=== PATIENT | male | born 1940 | race Caucasian/White ===

== ENCOUNTER 2022-02-08 08:33 | Outpatient (CLI) | payer MEDICARE, OTHER, SELFPAY ==
[2022-02-08 12:38] LABS: Chloride* 96 mmol/L (96-114); Potassium* 3.8 mmol/L (3.6-5.1); Sodium* 140 mmol/L (135-149)
[2022-02-08 12:41] LABS: Blood Urea Nitrogen* 22 mg/dL (7-30); Carbon Dioxide* 32 mmol/L (20-32); Estimated Glomerular Filt Rate 76 ml/min
[2022-02-08 12:42] LABS: Calcium* 10.7 mg/dL (8.4-10.6); Glucose* 139 mg/dL (60-115)
== END 2022-02-08 08:34 | disposition home or self-care (01) ==
LOC: FRMREF 08:34
PROVIDERS: PCP Physician Assistant Medical; Visit Provider Physician Assistant Medical
DX: Z01.818 Encounter for other preprocedural examination (principal)
CPT/HCPCS: 80048

== ENCOUNTER 2022-03-07 10:01 | Day surgery (SDC) | payer MEDICARE, OTHER, SELFPAY ==
[2022-03-07] VITALS (19 sets, daily range): BP systolic 109–154; BP diastolic 65–95; PULSE 68–91; RESP 16; TEMP 35.7–37.4; O2SAT 92–95; BMI 29.8
[2022-03-07] MEDS: LACTATED RINGERS 1000 ML 1,000 ML 100 ML IV (10:00)
[2022-03-07] MEDS: OXYCODONE (CR) 10 MG TAB.ER.12H PO (10:29)
[2022-03-07] MEDS: CELECOXIB 200 MG CAPSULE PO ×2 (10:29→21:27)
[2022-03-07] MEDS: SODIUM CHLORIDE 0.9 % (FLUSH) 10 ML SYRINGE IVF (10:29)
[2022-03-07] MEDS: ACETAMINOPHEN 500 MG TABLET 1000 MG PO ×2 (10:29→17:37)
[2022-03-07] MEDS: MIDAZOLAM HCL 1 MG/ML inj IVP (12:08)
[2022-03-07] MEDS: fentaNYL 100 MCG/2 ML inj IVP (12:08)
--- NOTE | 2022-03-07 12:09 | SUR.PREOP ---
TIME?OUT:?1205 PT/RN/MDA?VERIFICATION?OF?SURGICAL?SITE left knee,?PROCEDURE nerve block,?AND?CONSENT OBTAINED?PRIOR?TO?INVASIVE?PROCEDURE.
--- NOTE | 2022-03-07 13:29 | P.NB_ITS ---
Nerve Block Nerve Block Time Seen by Provider: 12:15 Date Seen: 03/07/22 Type of block requested by surgeon for post-operative analgesia: adductor canal Side: left Time out performed: Yes Verification of patient name: Yes Verification of date of : Yes Site marking: site marked Name of person performing procedure: Tiburcio Jimenez Assistants, if any: Sariah Trotter Continuous monitoring Was continuous monitoring of O2 sat, B/P, campus monitor, recorded every 15 minutes?: Yes Procedure Checklist: sterile prep, needles and gloves Ultrasound guided. Images saved: Yes Medications given in 5ml increments after negative aspiration: Ropivicaine %: 0.5 mL: 20 Needle gauge: 20 Decadron (mg): 10 Precedex (mcg): 25 Patient tolerated procedure well: Yes Additional comments: injected in 5ml increments after negative aspiration Block Charges Block Charge (with Pro Fee): Femoral Nerve Use of Ultrasound Machine for Block: Yes- US Guidance/pain block
--- NOTE | 2022-03-07 13:30 | P.NB_ITS ---
Nerve Block Nerve Block Time Seen by Provider: 12:15 Date Seen: 03/07/22 Type of block requested by surgeon for post-operative analgesia: geniculars Side: left Time out performed: Yes Verification of patient name: Yes Verification of date of : Yes Site marking: site marked Name of person performing procedure: Tiburcio Jimenez Continuous monitoring Was continuous monitoring of O2 sat, B/P, decorating consultant, recorded every 15 minutes?: Yes Procedure Checklist: sterile prep, needles and gloves Ultrasound guided. Images saved: No Medications given in 5ml increments after negative aspiration: Ropivicaine %: 0.5 mL: 12 Needle gauge: 25 Patient tolerated procedure well: Yes Additional comments: Injected in 4 ml increments after negative aspiration Block Charges Block Charge (with Pro Fee): Genicular Nerve Block Use of Ultrasound Machine for Block: No
--- NOTE | 2022-03-07 13:30 | W.ANESCHARGE ---
Anesthesia Charges Start Date/Time Anesthesia Start Date: 03/07/22 Anesthesia Start Time: 12:13 Stop Date/Time Anesthesia Stop Date: 03/07/22 Anesthesia Stop Time: 14:23 Summary Emergency: No Extremes of Age: Over 71-CPT [id number]
--- NOTE | 2022-03-07 13:40 | CRLHL7_ITS ---
For Patients: As a result of the Cures Act, medical imaging exams and procedure reports are released immediately into your electronic medical record. You may view this report before your referring provider. If you have questions, please contact your health care provider. INDICATION: Post left knee, postoperative total knee arthroplasty TECHNIQUE: Knee radiograph 2 views left COMPARISON: None FINDINGS: Bone: No acute fractures or aggressive bone lesions are identified. Joint: The patient is status post a total knee arthroplasty with patellar resurfacing. No significant knee effusion is seen. Soft tissue: Anterior skin, subcutaneous gas and joint gas are present from recent surgery. No radiopaque foreign bodies are seen. IMPRESSION: 1. There is an unremarkable postoperative appearance of the knee arthroplasty. Prelim Report By Dr. Pino Leon @ 03/07/2022 2:48:08 PM Dictated by: Pino Leon MD @ 03/07/2022 14:48:57 (Electronically Signed)
--- NOTE | 2022-03-07 13:43 | P.ORPRC_ITS ---
Procedure Note Date of procedure: 03/07/22 Procedure: SURGEON: Chuy De Santiago MD GARMENT MANUFACTURING SUPERVISOR: Mary Chavez PA-C PREOPERATIVE DIAGNOSIS: Left knee osteoarthritis POSTOPERATIVE DIAGNOSIS: Left knee osteoarthritis NAME OF OPERATION: Left total knee arthroplasty ANESTHESIA: Spinal ESTIMATED BLOOD LOSS: 0 mL COMPLICATIONS: None SPECIMENS: None DRAINS: None PREOPERATIVE ANTIBIOTICS: Ancef 2 grams IMPLANTS: 1. J&J Attune # 8 posterior stabilized femur 2. # 8 fixed-bearing tibia 3. # 8 posterior stabilized, 5 mm fixed-bearing polyethylene 4. 41 patella INDICATIONS: The patient is a 81-year-old male with a longstanding history of severe, unrelenting left knee pain secondary to end-stage (grade IV) left knee osteoarthritis. Despite appropriate nonoperative management, including activity modification, anti-inflammatories, [id number] pain medication, bracing, physical therapy, and injections they continue to have pain and disability. Operative intervention was offered. The risks, benefits and expected outcomes were discussed in detail. These included but were not limited to: Infection, bleeding, injury to blood vessel or nerve, venous thromboembolism. All questions were answered to their satisfaction. Use of an trust administrative assistant was necessary throughout the case for patient positioning and safety, soft tissue retraction, and closure. PROCEDURE: Spinal anesthesia was administered. The patient was placed supine on the operating table. The trust administrative assistant made sure the patient was positioned appropriately. The lower extremity was prepped and draped in the usual sterile fashion. The limb was exsanguinated with the Quang bandage. The pneumatic tourniquet was inflated to 300 mmHg. A standard anterior incision was made with the knee in flexion. Subcutaneous dissection was sharply taken through fascial layer #1. Full-thickness medial and lateral flaps were elevated. The trust administrative assistant retracted the soft tissues and protected them throughout the case. A standard medial parapatellar approach was made. The patella was everted. The infrapatellar fat pad was preserved. The menisci and cruciate ligaments were sharply d?brided. Marginal osteophytes were d?brided with the rongeur. The drill was used to penetrate the femoral canal. The canal was aspirated and irrigated with pulse lavage. The intramedullary femoral guide was placed for a 5-degree valgus cut, removing 10 mm off the distal femur. The saw was used to make the cut. Whitesides line and the trans epicondylar axis were marked. The femoral sizing guide was pinned onto the distal femur. Three degrees of external rotation nicely parallels the transepicondylar axis. Pins were placed for posterior referencing. The four-in-one cutting guide was pinned onto the distal femur. The anterior, posterior, and chamfer cuts were made. The trust administrative assistant protected the collateral ligaments. The box cutting guide was pinned. The box cuts were made. The boxed trial was placed and was an excellent fit. Drill holes for the lugs were made. Attention was then turned to the proximal tibia. The extramedullary tibial guide was placed for a neutral varus/valgus cut with 5 degrees of posterior slope, removing 1 mm based off the medial tibial surface. The trust administrative assistant protected the collateral ligaments and the neurovascular bundle. The saw was used to make the cut. Trial components were placed. The knee was nicely balanced in both flexion and extension. The trial components were removed. The tray was placed in appropriate rotation, parallel to our tibial cutting pins. It was pinned by the trust administrative assistant and the drill and the punch were used. The tray was removed. The punch was used again. We placed a bone plug in the femoral canal. Attention was then turned to the patella. [place] patellar thickness was 25 mm. The lobster claw resection guide was used with the 9.5 mm pretty. The saw was used to make the cut. Drill holes were made by the trust administrative assistant. The trial was placed and was an excellent fit. Cancellous surfaces were irrigated with pulse lavage and thoroughly dried by the trust administrative assistant. We cemented the tibial component, then the femoral component. We impacted the 5 mm polyethylene onto the tibial tray. The knee was brought into full extension. We then cemented the patellar component. Excessive cement was removed. The cement was allowed to harden. The knee was taken through a range of motion and was found to be nicely balanced in both flexion and extension. The patella tracks centrally. The trust administrative assistant did a three minute dilute Betadine solution soak. The trust administrative assistant irrigated the wound with 3 liters of normal saline via pulse lavage. The trust administrative assistant reapproximated the extensor mechanism with #1 Vicryl in an interrupted vgnmif-qx-poyka fashion. The trust administrative assistant then ran the extensor mechanism with a #1 PDO Stratafix. The trust administrative assistant closed the subcutaneous tissues with a 3-0 Stratafix and the skin with a running 3-0 Stratafix in a subcuticular fashion. Glue was used to seal the skin. The trust administrative assistant placed a dry dressing, DANTE stocking, and Polar Care. Sponge and needle counts were correct x2. The patient tolerated the procedure well. There were no apparent complications. They were carefully transferred to the hospital bed and taken to the postanesthesia care unit in satisfactory condition. PLAN: The patient will be mobilized with physical therapy. Aspirin will be used for DVT prophylaxis. They will be discharged to home once medically appropriate.
[2022-03-07] MEDS: LACTATED RINGERS 1000 ML 1,000 ML 75 ML IV (17:37)
[2022-03-07] MEDS: OXYCODONE 5 MG TABLET PO (17:37)
[2022-03-07] MEDS: CEFAZOLIN 2 GM in 0.9 % SODIUM CHLORIDE Mini-bag 100 ML IVPB (18:22)
[2022-03-07] MEDS: ATORVASTATIN 10 MG TABLET PO (21:27)
[2022-03-07] MEDS: SENNOSIDES 1 TAB TABLET 2 TAB PO (21:27)
[2022-03-07] MEDS: ASPIRIN 81 MG TABLET EC PO (21:27)
--- NOTE | 2022-03-07 21:47 | PM.IMCN1 ---
Date of Consult Patient: [facility] Patient Consult date: 03/07/22 Requesting Physician: Orthopedics Primary Care Provider: Anthony Rodarte PA-C Consult Narrative Reason for consult: Assist with postoperative management of medical conditions Narrative: Carl Domingo is a 81 year old man with advanced, end-stage right gonarthrosis. No longer amenable to non surgical modalities. Patient presents for elective right total knee arthroplasty today, which is undertaken successfully, without any apparent complications. Doing well. Review of Systems Status of ROS: Reports: 10 or more systems reviewed and unremarkable except as noted in History and below Narrative: Postoperative knee pain adequately managed at this juncture. Denies chest heaviness, pressure, tightness, or pain. Denies dyspnea at rest, dyspnea with exertion, paroxysmal nocturnal dyspnea, orthopnea, or cough. Denies syncope or near-syncope. Denies palpitations or fluttering. Denies dependent edema. Denies nausea or vomiting. Denies diarrhea constipation. Denies dysuria, urinary urgency, frequency, hematuria. No recent trauma, injury, blood loss, or acute illness. Denies fevers, rigors, diaphoresis. Denies heat or cold intolerance. No focal motor neurologic deficits. [facility] Medical History (Updated 03/07/22 @ 21:53 by Jayy Amor MD) Acquired hypothyroidism Actinic keratosis Diabetes mellitus Fatigue Gastroesophageal reflux Gout Hyperlipidemia Hypertension Hypothyroidism Osteoarthritis of right knee Sleep apnea Traumatic brain injury (~2010) Surgical History (Updated 03/07/22 @ 21:53 by Jayy Amor MD) History of repair of hiatal hernia (~1979) History of shoulder surgery (~1999) History of transurethral resection of prostate (~1989) Status post evacuation of subdural hematoma (~2010) Family History Father Myocardial infarction Social History Narrative: former smoker no illicit drug use rarely consumes alcohol Smoking Status: Former smoker What tobacco products do you use: cigarettes Smoking quit date/years: >15 years ago Do you use any of these nicotine containing products: None How often do you have a drink containing alcohol: 2-4 times a month Alcohol type: beer How many standard drinks containing alcohol do you have on a typical day: 1 or 2 How often do you have six or more drinks on one occasion: Never AUDIT-C Alcohol total score: 2 Non-prescribed substance use: denies use Caffeine: Yes (coffee, 6-8 cups/day) service: No Meds Home Medications and Allergies Home Medications Medication Instructions Recorded Confirmed Type aspirin 81 mg tablet,delayed 81 mg PO DAILY 11/14/21 03/07/22 History release (Adult Low Dose Aspirin) trazodone 50 mg tablet 25 - 50 mg PO HS 11/14/21 03/07/22 History atorvastatin 10 mg tablet 10 mg PO HS 03/07/22 03/07/22 History ketoconazole 2 % topical cream 1 applic topical DAILY PRN 03/07/22 03/07/22 History levothyroxine 112 mcg tablet 112 mcg PO DAILY 03/07/22 03/07/22 History lisinopril 40 mg tablet 40 mg PO DAILY 03/07/22 03/07/22 History metformin 500 mg tablet 500 mg PO DAILY 03/07/22 03/07/22 History nifedipine 60 mg tablet,extended 60 mg PO DAILY 03/07/22 03/07/22 History release Allergies Allergy/AdvReac Type Severity Reaction Status Date / Time No Known Allergies Allergy Verified 03/07/22 10:13 Exam Narrative: Exam Narrative: Appears comfortable, no acute distress. Friendly, articulate, cooperative. Mood and affect are congruent. Decreased hearing, chronic. Vision is grossly normal. Midline nasal septum. Dentition in fair repair. Neck is supple. Midline trachea. Normal thyroid. No JVD, hepatojugular reflux, or carotid bruits. No lymphadenopathy. Lungs are clear to auscultation without wheezing, rhonchi, or rales. Chest wall excursions are full. No CVA tenderness. Heart tones with regular rhythm, normal S1-S2, without murmur, gallop, or rub. Abdomen with active bowel sounds, soft, nontender. Extremities without edema. Moves all 4 extremities. Able to transfer from chair to bed and bed to chair. Skin is intact. Const: Vital Signs, click to edit/add: Vital Signs - 24 hr 03/07/22 10:30 03/07/22 14:19 03/07/22 14:25 Temperature 99.3 F 97.3 F L Pulse Rate 91 70 72 Pulse Rate [Left P ulse Oximeter] Respiratory Rate 16 16 16 Blood Pressure 122/85 109/65 128/81 Blood Pressure [Ri ght Arm] Pulse Oximetry 94 93 92 Oxygen Delivery Me thod Room Air Room Air Room Air 03/07/22 14:30 03/07/22 14:35 03/07/22 14:40 Temperature Pulse Rate 69 68 69 Pulse Rate [Left P ulse Oximeter] Respiratory Rate 16 16 16 Blood Pressure 126/80 129/71 127/78 Blood Pressure [Ri ght Arm] Pulse Oximetry 92 93 93 Oxygen Delivery Me thod Room Air Room Air Room Air 03/07/22 14:44 03/07/22 15:00 03/07/22 15:15 Temperature 96.3 F L 96.5 F L Pulse Rate 70 74 Pulse Rate [Left P ulse Oximeter] 72 Respiratory Rate 16 16 16 Blood Pressure 123/78 Blood Pressure [Ri ght Arm] 149/85 H 145/85 H Pulse Oximetry 93 93 Oxygen Delivery Me thod Room Air Room Air Room Air 03/07/22 15:30 03/07/22 15:45 03/07/22 16:00 Temperature 97.2 F L Pulse Rate Pulse Rate [Left P ulse Oximeter] 72 77 78 Respiratory Rate 16 16 16 Blood Pressure Blood Pressure [Ri ght Arm] 154/92 H 149/88 H 128/95 H Pulse Oximetry 93 94 94 Oxygen Delivery Me thod Room Air Room Air Room Air 03/07/22 16:30 03/07/22 17:00 03/07/22 18:00 Temperature Pulse Rate Pulse Rate [Left P ulse Oximeter] 79 77 88 Respiratory Rate 16 16 16 Blood Pressure Blood Pressure [Ri ght Arm] 139/79 148/90 H 138/82 Pulse Oximetry 95 94 94 Oxygen Delivery Me thod Room Air Room Air Room Air 03/07/22 19:00 Temperature 98.0 F Pulse Rate Pulse Rate [Left P ulse Oximeter] 88 Respiratory Rate 16 Blood Pressure Blood Pressure [Ri ght Arm] 137/89 Pulse Oximetry 93 Oxygen Delivery Me thod Room Air Assessment and Plan Assessment and plan (1) Osteoarthritis of right knee: Status: Acute (2) Status post right knee replacement: Status: Acute (3) Obstructive sleep apnea: Problem comment: 10 cm H2O Status: Acute (4) Hypertension: Status: Acute (5) Gastroesophageal reflux: Status: Acute (6) Acquired hypothyroidism: Status: Acute (7) Diabetes mellitus: Status: Acute (8) Pure hypercholesterolemia: Status: Acute Plan 1. Reviewed impression with patient. Answers questions. 2. Agree with perioperative antibiotic prophylaxis. 3. Agree with postoperative venous thromboembolism prophylaxis efforts. 4. Continue with other supportive efforts. 5. Will follow with Orthopedic surgery while patient is here in the hospital.
--- NOTE | 2022-03-07 23:29 | PC.NURSE ---
End of Shift: Patient pleasant and cooperative. Afebrile. Dressing to left knee C/D/I. CMS intact. Rating pain 2-4/10 and PRN Oxycodone given x1. Up to chair and bathroom with 1 assist, walker and gait belt. Tolerating regular diet with no nausea.
[2022-03-08] MEDS: ACETAMINOPHEN 500 MG TABLET 1000 MG PO ×2 (00:12→05:53)
[2022-03-08] MEDS: CEFAZOLIN 2 GM in 0.9 % SODIUM CHLORIDE Mini-bag 100 ML IVPB (02:41)
[2022-03-08] MEDS: LEVOTHYROXINE 112 MCG TABLET PO (05:53)
[2022-03-08 07:00] VITALS: BP 155/77; PULSE 82; RESP 16; TEMP 36.9; O2SAT 94
--- NOTE | 2022-03-08 07:40 | PC.NURSE ---
23-07: pleasant and cooperative. SBA with gb and walker, tolerates activity well. No c/o pain. VSS. Dressing to knee CDI, cryocuff on.
[2022-03-08 07:52] LABS: Basophils Absolute Auto 0.02 K/uL (0.00-0.30); Basophils Percent Auto 0.2 % (0.0-3.0); Hematocrit 38.8 % (37.0-53.0); Hemoglobin* 13.6 gm/dL (13.5-17.5); Immature Granulocytes Abs Auto 0.01 K/uL (0.00-0.30); Immature Granulocytes Pct Auto 0.1 %; Lymphocytes Percent Auto 10.2 % (20-44); Mean Corpuscular HGB Conc 35 gm/dL (32-36); Mean Corpuscular Hemoglobin 32 pg (26-34); Mean Corpuscular Volume 92 fL (80-100); Neutrophils Percent Auto 82.5 % (42.0-72.0); Platelet Count* 211 K/uL (140-440); RDW Coefficient of Variation % 12.8 % (11.5-15.5); White Blood Count* 10.93 K/uL (4.50-11.00)
[2022-03-08 07:58] LABS: Slide Review Reflex No
[2022-03-08 08:13] LABS: INR 1.13 (0.91-1.10); Prothrombin Time 15.2 Seconds
[2022-03-08 08:25] LABS: Sodium* 136 mmol/L (135-149)
[2022-03-08 08:26] LABS: Potassium* 3.6 mmol/L (3.6-5.1)
[2022-03-08 08:28] LABS: Creatinine* 0.9 mg/dL (0.5-1.5); Est. Creatinine Clearance* 62.75; Estimated Glomerular Filt Rate 86 ml/min
[2022-03-08 08:29] LABS: Blood Urea Nitrogen* 23 mg/dL (7-30)
--- NOTE | 2022-03-08 08:39 | PM.ORPN ---
Subjective Subjective Time Seen by Provider: 07:15 Date Seen: 03/08/22 Principal diagnosis: Status post left total knee replacement Interval history: Carl is doing well this morning. He will discharge to home today. Ortho Exam Narrative Exam Narrative: Alert and oriented x3. Patient is in no acute distress. Converses without labored breathing. Hearing is grossly intact. Ambulates with a walker. Examination of the left knee shows very minimal soft tissue edema about the left knee. No effusion is palpable. Bilateral calves are soft and nontender. CMS is intact left lower extremity. He easily moves from lying position to a seated position swinging his legs over the edge of the bed easily. He wants to put his regular clothes on. Const Vital Signs, click to edit/add: Vital Signs - 24 hr 03/07/22 10:30 03/07/22 14:19 03/07/22 14:25 Temperature 99.3 F 97.3 F L Pulse Rate 91 70 72 Pulse Rate [Left Pulse Oximeter] Respiratory Rate 16 16 16 Blood Pressure 122/85 109/65 128/81 Blood Pressure [Right Arm] Pulse Oximetry 94 93 92 Oxygen Delivery Method Room Air Room Air Room Air 03/07/22 14:30 03/07/22 14:35 03/07/22 14:40 Temperature Pulse Rate 69 68 69 Pulse Rate [Left Pulse Oximeter] Respiratory Rate 16 16 16 Blood Pressure 126/80 129/71 127/78 Blood Pressure [Right Arm] Pulse Oximetry 92 93 93 Oxygen Delivery Method Room Air Room Air Room Air 03/07/22 14:44 03/07/22 15:00 03/07/22 15:15 Temperature 96.3 F L 96.5 F L Pulse Rate 70 74 Pulse Rate [Left Pulse Oximeter] 72 Respiratory Rate 16 16 16 Blood Pressure 123/78 Blood Pressure [Right Arm] 149/85 H 145/85 H Pulse Oximetry 93 93 Oxygen Delivery Method Room Air Room Air Room Air 03/07/22 15:30 03/07/22 15:45 03/07/22 16:00 Temperature 97.2 F L Pulse Rate Pulse Rate [Left Pulse Oximeter] 72 77 78 Respiratory Rate 16 16 16 Blood Pressure Blood Pressure [Right Arm] 154/92 H 149/88 H 128/95 H Pulse Oximetry 93 94 94 Oxygen Delivery Method Room Air Room Air Room Air 03/07/22 16:30 03/07/22 17:00 03/07/22 18:00 Temperature Pulse Rate Pulse Rate [Left Pulse Oximeter] 79 77 88 Respiratory Rate 16 16 16 Blood Pressure Blood Pressure [Right Arm] 139/79 148/90 H 138/82 Pulse Oximetry 95 94 94 Oxygen Delivery Method Room Air Room Air Room Air 03/07/22 19:00 03/07/22 20:00 03/07/22 21:00 Temperature 98.0 F 97.7 F Pulse Rate Pulse Rate [Left Pulse Oximeter] 88 88 85 Respiratory Rate 16 16 16 Blood Pressure Blood Pressure [Right Arm] 137/89 142/65 H 132/80 Pulse Oximetry 93 93 94 Oxygen Delivery Method Room Air Room Air Room Air 03/07/22 23:00 03/07/22 23:00 03/08/22 07:00 Temperature 97.7 F Pulse Rate Pulse Rate [Left Pulse Oximeter] 75 75 82 Respiratory Rate 16 16 16 Blood Pressure Blood Pressure [Right Arm] 138/84 Pulse Oximetry 94 Oxygen Delivery Method Room Air 03/08/22 07:00 Temperature 98.4 F Pulse Rate Pulse Rate [Left Pulse Oximeter] 82 Respiratory Rate 16 Blood Pressure Blood Pressure [Right Arm] 155/77 H Pulse Oximetry 94 Oxygen Delivery Method Room Air Assessment and Plan Assessment and plan (1) Osteoarthritis of right knee: Status: Acute (2) Status post right knee replacement: Problem details: 03/07/2022 Status: Acute Assessment and Plan: Plan for discharge is today to home if they meet discharge criteria. DVT prophylaxis includes aspirin 81 mg twice daily x1 month, Pb stockings x1 month may remove for 1 hr per day, frequent ambulation Remove dressing in 1 week. Observe wound and phone Orthopedics with any questions or concerns Return to clinic in 1 week for a wound check Return to clinic in [address] De Santiago Minimize narcotic use. Wean off and discontinue soon as possible. Activities as tolerated. No strenuous activity. Outpatient physical therapy as scheduled. Ice and elevate the operative extremity. No restriction on ice. (3) Obstructive sleep apnea: Problem details: 10 cm H2O Status: Acute (4) Hypertension: Status: Acute (5) Gastroesophageal reflux: Status: Acute (6) Acquired hypothyroidism: Status: Acute (7) Diabetes mellitus: Status: Acute (8) Pure hypercholesterolemia: Status: Acute
[2022-03-08] MEDS: SENNOSIDES 1 TAB TABLET 2 TAB PO (08:41)
[2022-03-08] MEDS: CELECOXIB 200 MG CAPSULE PO (08:41)
[2022-03-08] MEDS: lisinopriL 20 MG TABLET 40 MG PO (08:42)
[2022-03-08] MEDS: OXYCODONE 5 MG TABLET PO (08:42)
[2022-03-08] MEDS: METFORMIN 500 MG TABLET PO (08:42)
[2022-03-08] MEDS: NIFEdipine 30 MG TAB.ER.24 60 MG PO (08:42)
[2022-03-08] MEDS: ASPIRIN 81 MG TABLET EC PO (08:42)
--- NOTE | 2022-03-08 10:19 | PC.SOCIAL ---
Social Work Note: Social work met with pt. and today to discuss discharge. Pt. said that is available to help him as needed, and that he has a support system to call if he needs help at home. Pt. stated that home is fully handicap-accessible and has no concerns about home safety. Pt. expressed no further concerns at this time. Pt. and were informed that they can reach out to social work with any future needs.
--- NOTE | 2022-03-08 12:09 | PC.NURSE ---
Discharge: Shift note/ Pt. alert and oriented x4. Dressing to Left knee C/D/I. No pain reported. Tolerating a regular diet. Pt. ambulated w/PT and OT and tolerated activity well. No N/V/SOB reported. Pt. VSS. IV removed from left forearm intact. Pt. Belongings list and Discharge instruction sheet signed. Pt. and Spouse verbalized understanding of discharge instructions, follow up and therapy appointment. Pt. was discharged at 1045, accompanied by via wheelchair to home.
== END 2022-03-08 10:45 | disposition home or self-care (01) ==
LOC: OR 10:03 → MEDSURG 10:05
PROVIDERS: PCP Physician Assistant Medical; Visit Provider Orthopaedic Surgery
PROC: (CPT 27447; principal; 2022-03-07 12:00)
DX: M17.12 Unilateral primary osteoarthritis, left knee (principal); M25.562 Pain in left knee; G47.33 Obstructive sleep apnea (adult) (pediatric); E11.9 Type 2 diabetes mellitus without complications; I10 Essential (primary) hypertension; K21.9 Gastro-esophageal reflux disease without esophagitis; E03.9 Hypothyroidism, unspecified; E78.00 Pure hypercholesterolemia, unspecified
CPT/HCPCS: 27447; 01402; 36415; 64447; 64454; 73560; 76942; 82565; 82962; 84132; 84295; 84520; 85025; 85610; 97110; 97116; 97161; 97165; 99100; A9270; C1776; J0690; J1100; J2250; J2704; J2795; J3010; J7120

== ENCOUNTER 2022-03-22 15:41 | Outpatient (CLI) | payer MEDICARE, OTHER, SELFPAY ==
--- NOTE | 2022-03-22 16:00 | CRLHL7_ITS ---
For Patients: As a result of the Century Cures Act, medical imaging exams and procedure reports are released immediately into your electronic medical record. You may view this report before your referring provider. If you have questions, please contact your health care provider. INDICATION: LEFT CALF PAIN, LT TKA SP 03/07/22 TECHNIQUE: Ultrasound venous duplex left lower extremity. COMPARISON: None. FINDINGS: The left common femoral, superficial femoral, deep femoral, popliteal, posterior tibial, and greater saphenous veins are fully compressible normal waveforms. The contralateral right common femoral vein is also compressible with normal waveform. No masses evident. IMPRESSION: Normal ultrasound of the left lower extremity veins. Dictated by: Ranjeet Roy MD @ 03/22/2022 16:46:54 (Electronically Signed)
== END 2022-03-22 15:42 | disposition home or self-care (01) ==
LOC: US 15:44
PROVIDERS: PCP Physician Assistant Medical; Visit Provider Physician Assistant Surgical
DX: M79.662 Pain in left lower leg (principal)
CPT/HCPCS: 93971

== ENCOUNTER 2022-04-19 11:15 | Outpatient (RCR) | payer MEDICARE, OTHER, SELFPAY ==
--- NOTE | 2022-03-01 15:56 | PT.OPE ---
PT [place] [facility] Eval PT [facility] Outpatient Eval Start: 03/01/22 12:43 Freq: Status: Active Protocol: Document 03/01/22 12:44 CJT (Rec: 03/01/22 15:54 CJT [id number]) E-signed By Wilfred Linda PT Physical Therapy Outpatient Evaluation Insurance Information Recert Due Date 06/09/22 Insurance Name Medicare B Medical Diagnosis Pre-/Post-Op L TKA - DOS: 12/19 Treating Diagnosis Z96.652 - L knee replacement Z47.1 - joint replacement aftercare Referring Chuy Foley MD Subjective Subjective Pt presents for pre-op visit for L TKA top be performed by Dr. De Santiago on 03/07/2022. Pt presents with his , Sally (Zac). Pt lives in a 1-level home with his and his granddaughter and her family live next door. Pt has a walk- in shower with a chair available and 1 grab bar. Toilet seat is slightly higher than average. Pts Zac has had a knee replacement in the past by Dr. Alfonso and Carl will be using her walker and SPC following surgery for his ADs. Pt has chicken coop on his property and is wondering how long he must wait after surgery before he can go collect eggs. Pts pain in his knee is worse with transfers and long periods of sitting. 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 Pts home is more than adequate for a safe return following home and he informs me that when he had his house built, his builders abided by ADA standards so that his entire home is W/C accessible, although he does not use a W/C . Pts will be home to assist when needed. I discussed the risk of being around farm animals after surgery including increased risk for infection and pt understands this. He does have a great grandson that lives next door that will be able to help collect eggs when needed . The nature of the pts condition as well as expectations following surgery were explained and all questions were answered to the pts satisfaction. Skilled PT services are medically necessary to address deficits and return patient to highest level of function. Recommend physical therapy sessions 1-2/ week for 12 weeks. Pt agrees with this plan. Printout of HEP was given for I completion and pt gives verbal understanding of each exercise . Primary Functional Limitations Transfers, walking Plan of Care Rehabilitation Potential Excellent Physical Therapy Goals STG - To be completed in 2-3 weeks: 1. Pt will report consistent use of ice as well as elevation of surgical limb while resting to reduce inflammation and swelling. 2. Pt will demonstrate 90 degrees of knee flexion on surgical limb to reduce risk of contracture development and progress through rehabilitation as expected. 3. Pt to show appropriate use of all AD's with minimal gait deviations and no LOB with all ambulation to reduce risk of falls and restore normal gait mechanics. LTG - To be completed in 8-12 weeks: 1. Pt to be I with HEP so that they may I manage progression of symptoms. 2. Pt will demonstrate 120 degrees knee flexion on surgical limb so that they may descend steps without restrictions in ROM. 3. Pt will perform 10+ squats with good control over medial/ lateral deviation of knees to show improved functional strength to assist with transfers. 4. Pt will demonstrate 5/5 MMT knee flexion/extension of surgical limb to provide greater support to knee joint and allow for ease of ambulation. 5. Pt will ambulate 500 ft over uneven ground without AD or LOB so that he may walk out to chicken coop to collect eggs at home with confidence and reduced risk of falls. Treatment Plan/Direct Interventions Electrical Stimulation,Gait Training,Ice/Cold/ Vasopneumatic,Joint Mobilization,Manual Therapy, Neuromuscular Re-ed,Self-Care/ Home Management,Therapeutic Exercises Frequency/Duration 1-2/week for 12 weeks Patient Will Be Discharged From Therapy Completion of LTG(s),Skills Plateau,Independent w/HEP, Independently Progressing Evaluation Billing Untimed Code Treatment Minutes 50 PT Eval No Charge No Complexity Low Certification Information Initial Certification Date 03/01/22 Ending Certification Date 06/09/22 Provider Signature Shows Agreement With POC & Medical Necessity Physician Signature & Date Requested Please Sign/Date Here Physician Comment/Change : Physician NPI Number #
== END 2022-11-16 23:59 | disposition home or self-care (01) ==
PROVIDERS: PCP Physician Assistant Medical; Visit Provider Orthopaedic Surgery
DX: M17.12 Unilateral primary osteoarthritis, left knee (principal); Z96.652 Presence of left artificial knee joint; Z47.1 Aftercare following joint replacement surgery; Z51.89 Encounter for other specified aftercare
CPT/HCPCS: 97016; 97110; 97116; 97140; 97161; 97164

== ENCOUNTER 2022-05-02 09:31 | Outpatient (CLI) | payer MEDICARE, OTHER, SELFPAY ==
[2022-05-02 13:19] LABS: Chloride* 99 mmol/L (96-114); Potassium* 3.7 mmol/L (3.6-5.1); Sodium* 141 mmol/L (135-149)
[2022-05-02 13:21] LABS: Bilirubin Total* 0.8 mg/dL (0.1-1.5); Carbon Dioxide* 31 mmol/L (20-32); Creatinine* 1.1 mg/dL (0.5-1.5); Estimated Glomerular Filt Rate 68 ml/min
[2022-05-02 13:22] LABS: Alanine Aminotransferase* 25 U/L (4-50); Alkaline Phosphatase* 89 U/L (40-150); Aspartate Amino Transferase* 28 U/L (12-35); Blood Urea Nitrogen* 29 mg/dL (7-30); Glucose* 161 mg/dL (60-115); Total Protein* 7.8 g/dL (6.0-8.3); Triglycerides* 276 mg/dL (40-149)
[2022-05-02 13:23] LABS: Calcium* 10.5 mg/dL (8.4-10.6); HDL Cholesterol* 33 mg/dL (>=40)
[2022-05-02 14:52] LABS: TSH With Reflex to FT4* 0.106 uIU/mL (0.270-4.200)
[2022-05-03 19:07] LABS: Cholesterol* 154 mg/dL (90-199); LDL Cholesterol Calculated 66 mg/dL (<100)
[2022-05-04 08:40] LABS: Free T4 Free Thyroxine* 1.57 ng/dL (0.70-1.85)
== END 2022-05-02 09:32 | disposition home or self-care (01) ==
PROVIDERS: PCP Physician Assistant Medical; Visit Provider Physician Assistant Medical
DX: E03.9 Hypothyroidism, unspecified (principal); E11.9 Type 2 diabetes mellitus without complications; E78.00 Pure hypercholesterolemia, unspecified; I10 Essential (primary) hypertension
CPT/HCPCS: 80053; 80061; 84439; 84443

== ENCOUNTER 2022-11-27 07:54 | Outpatient (CLI) | payer MEDICARE, OTHER, SELFPAY | END 2022-11-27 07:55 | disposition home or self-care (01) | PROVIDERS: PCP Physician Assistant Medical; Referring Provider Physician Assistant Medical; Visit Provider Orthopaedic Surgery | DX: R53.83 Other fatigue (principal); E11.9 Type 2 diabetes mellitus without complications | CPT/HCPCS: 84443 ==

== ENCOUNTER 2023-01-02 11:30 | Emergency (ER) | payer MEDICARE, OTHER, SELFPAY ==
[2023-01-02 11:42] VITALS: BP 126/77; PULSE 101; RESP 16; TEMP 36.5; O2SAT 94
--- NOTE | 2023-01-02 13:47 | ED.GENADULT ---
HPI - General Adult General Chief complaint: Extremity Pain/Injury, Lower Stated complaint: L hip pain Time Seen by Provider: 01/02/23 13:32 History of Present Illness HPI narrative: This 82-year-old male comes in reporting severe left hip pain radiating down below his left knee. He states that the pain began about 3 days ago. There were is no particular injury event to trigger this pain except that he states that he lifted a jug of water for the check ins and felt some discomfort after doing this. Pain is worsened since then and he states that he did not sleep well last night because of pain. He did have some pain across his lower back and has had this in the past. Currently he states that he is unable to ambulate on that left leg. He did is use a cane and had much difficulty getting to the bathroom but did put some weight on that leg. His pain is distinctly worse with any kind of weight-bearing. He is able to raise his left leg up off the bed. He does not have any particular pain with straight leg raising or rotating his leg internally and externally. Related Data Previous Rx's Medication Instructions Recorded acetaminophen 500 mg capsule 500 - 1,000 mg (1 - 2 x 500 mg) PO 03/07/22 Q6H PRN pain #100 caps atorvastatin 10 mg tablet 10 mg PO HS #90 tabs 05/04/22 hydrochlorothiazide 50 mg tablet 50 mg PO QAM #90 tabs 05/04/22 levothyroxine 112 mcg tablet 112 mcg PO DAILY #90 tabs 05/04/22 lisinopril 40 mg tablet 40 mg PO DAILY #90 tabs 05/04/22 nifedipine 60 mg tablet,extended 60 mg PO DAILY #90 tabs 05/04/22 release trazodone 50 mg tablet 25 - 50 mg (0.5 - 1 x 50 mg) PO HS 05/04/22 #90 tabs amoxicillin 500 mg capsule 2,000 mg (4 x 500 mg) PO ONCE #4 05/26/22 caps metformin 500 mg tablet 500 mg PO DAILY #90 tabs 11/15/22 cyclobenzaprine 10 mg tablet 10 mg PO TID #15 tabs 01/02/23 hydrocodone 5 mg-acetaminophen 325 1 tab PO Q4-6H PRN pain #20 tabs 01/02/23 mg tablet ketorolac 10 mg tablet 10 mg PO Q8H 5 days #15 tabs 01/02/23 methylprednisolone 4 mg tablets in See Rx Instructions PO .COMPLEX 01/02/23 a dose pack (Medrol (Dipak)) #21 ea Allergies Allergy/AdvReac Type Severity Reaction Status Date / Time No Known Allergies Allergy Verified 09/04/22 09:34 Review of Systems Status of ROS: Reports: 10 or more systems reviewed and unremarkable except as noted in History and below Narrative: Constitutional: No fevers, no weight gain or loss. Eyes: No discharge. No vision changes. HENT: No congestion, no sore throat, no ear pain. Cardiovascular: No chest pain, no palpitations. Respiratory: No shortness of breath, no wheezes, no cough. Gastrointestinal: No abdominal pain, no vomiting, no diarrhea. Genitourinary: No dysuria, no hematuria. Musculoskeletal: Left hip pain as described above. Skin: No rashes, no pruritis. Neurological: No dizziness, weakness, sensory change, speech change. Endo/Heme/Allergies: No bruising or bleeding. No polydipsia. Pysch: no suicidality, no anxiety, no insomnia. All other systems reviewed and are negative. [facility] Medical History (Updated 01/02/23 @ 16:03 by Michele Vivar MD) Osteoarthritis of right knee ?M17.11 - Unilateral primary osteoarthritis, right knee (ICD-10) Gout ?M10.9 - Gout, unspecified (ICD-10) Traumatic brain injury (~2010) ?S06.9X9A - Unspecified intracranial injury with loss of consciousness of unspecified duration, initial encounter (ICD-10) Fatigue ?R53.83 - Other fatigue (ICD-10) Surgical History (Updated 09/04/22 @ 09:45 by Jessica Duenas) Status post total left knee replacement (03/07/22) ?Z96.652 - Presence of left artificial knee joint (ICD-10) Status post arthroscopy of right shoulder (04/28/05) ?Z98.890 - Other specified postprocedural states (ICD-10) Status post evacuation of subdural hematoma (~2010) ?Z98.890 - Other specified postprocedural states (ICD-10) ?Z86.79 - Personal history of other diseases of the circulatory system (ICD-10) History of transurethral resection of prostate (~1989) ?Z98.890 - Other specified postprocedural states (ICD-10) ?Z90.79 - Acquired absence of other genital organ(s) (ICD-10) History of repair of hiatal hernia (~1979) ?Z98.890 - Other specified postprocedural states (ICD-10) ?Z87.19 - Personal history of other diseases of the digestive system (ICD-10) Family History Father Myocardial infarction Social History (Reviewed 03/15/22 @ 11:18 by Magdalena Ballard ~ [facility] [employer]) Narrative: former smoker no illicit drug use rarely consumes alcohol Smoking Status: Former smoker What tobacco products do you use: cigarettes Smoking quit date/years: >15 years ago Do you use any of these nicotine containing products: None How often do you have a drink containing alcohol: 2-4 times a month Alcohol type: beer How many standard drinks containing alcohol do you have on a typical day: 1 or 2 How often do you have six or more drinks on one occasion: Never AUDIT-C Alcohol total score: 2 Non-prescribed substance use: denies use Caffeine: Yes (coffee, 6-8 cups/day) service: No Exam Narrative: Exam Narrative: Constitutional: Well-developed, well-nourished, no acute distress. HEENT: Normocephalic, atraumatic. Neck: Normal range of motion. Nontender. Supple. Heart: Regular. No murmurs. Normal rate. Intact distal pulses. Lungs: Clear to auscultation. No chest discomfort. No wheezes, rhonchi, or rales. Abdomen: Normal bowel sounds. Nontender. No rebound tenderness. Genitalia: Deferred. Back: No midline tenderness. Normal range of motion. Extremities: Pain in the left hip radiating down the anterior aspect of his left leg below his knee. No pain when log-rolling his left leg. Straight leg raise is negative. Skin: Intact. No rash. Warm. No erythema or pallor. Neurologic: No altered sensation. No weakness. Alert and oriented. Psychiatric: No suicidality. No anxiety or depression. No insomnia. Nursing notes and vitals signs are reviewed. Const: Vital Signs, click to edit/add: Vital Signs - 24 hr 01/02/23 11:42 Temperature 97.7 F Pulse Rate [Pulse Oximeter] 101 H Respiratory Rate 16 Blood Pressure [Ri ght Upper Arm] 126/77 Pulse Oximetry 94 Oxygen Delivery Me thod Room Air Course Vital Signs Vital signs: Initial Vital Signs Temperature 97.7 F 01/02/23 11:42 Temperature Source Temporal Artery Scan 01/02/23 11:42 Pulse Rate 101 H 01/02/23 11:42 Pulse Rhythm Regular 01/02/23 11:42 Respiratory Rate 16 01/02/23 11:42 Blood Pressure 126/77 01/02/23 11:42 Blood Pressure Mean 93 01/02/23 11:42 Blood Pressure Position Sitting 01/02/23 11:42 Pulse Oximetry 94 01/02/23 11:42 Oxygen Delivery Method Room Air 01/02/23 11:42 Vital Signs Temperature 97.7 F 01/02/23 11:42 Pulse Rate 101 H 01/02/23 11:42 Respiratory Rate 16 01/02/23 11:42 Blood Pressure 126/77 01/02/23 11:42 Pulse Oximetry 94 01/02/23 11:42 Oxygen Delivery Method Room Air 01/02/23 11:42 Temperature 97.7 F 01/02/23 11:42 Pulse Rate 101 H 01/02/23 11:42 Respiratory Rate 16 01/02/23 11:42 Blood Pressure 126/77 01/02/23 11:42 Pulse Oximetry 94 01/02/23 11:42 Oxygen Delivery Method Room Air 01/02/23 11:42 Medical Decision Making MDM Narrative Medical decision making narrative: This patient comes in reporting worsening pain in his left hip extending down his leg. He has had a total left knee replacement done less than a year ago. He does not report any recent injury event or significant strenuous activity to bring about these symptoms. The patient states that he has great difficulty with any kind of weight-bearing and did not sleep well last night due to pain in these areas. X-ray imaging of his left hip by my review shows no sign of fracture or dislocation. By my review it does not appear to be any significant or severe degenerative disease also. The patient received an intramuscular injection of morphine and after some time was able to ambulate much better with this pain relief. He is okay to be discharged home. His pain seems to radiate in may be because of a nerve impingement. He states that he has had back surgery in the distant past. The patient received prescriptions for Medrol Dosepak, Flexeril, Toradol, and Bassett. He does have diabetes and takes metformin. He understands that the Medrol Dosepak will cause his blood glucose to increase temporarily. I advised him to follow-up with orthopedic clinic or spine clinic for ongoing management. Discharge Plan Discharge Clinical Impression: Acute hip pain Patient Disposition: Home, Self-Care Condition: Stable Additional Instructions: Take medication as needed and indicated. Follow up with orthopedic clinic or spine clinic. Call [phone] for appointment. Return if worsening. Prescriptions: New cyclobenzaprine 10 mg tablet 10 mg PO TID Qty: 15 0RF hydrocodone-acetaminophen 5-325 mg tablet 1 tab PO Q4-6H PRN (Reason: pain) Qty: 20 0RF ketorolac 10 mg tablet 10 mg PO Q8H 5 Days Qty: 15 0RF methylprednisolone [Medrol (Dipak)] 4 mg tablets,dose pack See Rx Instructions .ROUTE .COMPLEX Qty: 21 0RF Rx Instructions: orally per package directions No Action atorvastatin 10 mg tablet 10 mg PO HS Qty: 90 3RF hydrochlorothiazide 50 mg tablet 50 mg PO QAM Qty: 90 3RF lisinopril 40 mg tablet 40 mg PO DAILY Qty: 90 3RF nifedipine 60 mg tablet extended release 60 mg PO DAILY Qty: 90 3RF trazodone 50 mg tablet 25 - 50 mg PO HS Qty: 90 3RF levothyroxine 112 mcg tablet 112 mcg PO DAILY Qty: 90 3RF acetaminophen 500 mg capsule 500 - 1,000 mg PO Q6H MDD 4000mg per day PRN (Reason: pain) Qty: 100 0RF amoxicillin 500 mg capsule 2,000 mg PO ONCE Qty: 4 3RF Rx Instructions: Take 4 capsules (2000mg) 1 hour prior to dental appointment. metformin 500 mg tablet 500 mg PO DAILY Qty: 90 0RF Follow Up/Referrals: Anthony Rodarte PA-C [Primary Care Provider] - Stand Alone Forms: [employer] Info Instructions
--- NOTE | 2023-01-02 15:01 | CRLHL7_ITS ---
For Patients: As a result of the Cures Act, medical imaging exams and procedure reports are released immediately into your electronic medical record. You may view this report before your referring provider. If you have questions, please contact your health care provider. INDICATION: Pain. TECHNIQUE: Pelvis and left hip 3 views. COMPARISON: Pelvis radiograph 04/15/2012. FINDINGS: No acute fracture or dislocation. Mild degenerative changes of the hips. Degenerative changes of the lower lumbar spine. The sacroiliac joints are normal in appearance. Pelvic phleboliths. Vascular calcifications. Soft tissues are unremarkable. IMPRESSION: No acute findings. Dictated by Elaina Sanchez MD @ 01/02/2023 4:32:31 PM (Electronically Signed)
[2023-01-02] MEDS: MORPHINE 10 MG/ML inj IM (15:15)
== END 2023-01-02 16:12 | disposition home or self-care (01) ==
PROVIDERS: Emergency Provider Emergency Medicine Emergency Medical Services; PCP Physician Assistant Medical
DX: M25.552 Pain in left hip (principal)
CPT/HCPCS: 73502; 96372; 99283; 99284; J2270

== ENCOUNTER 2023-01-22 14:18 | Outpatient (CLI) | payer MEDICARE, OTHER, SELFPAY ==
--- NOTE | 2023-01-22 14:30 | CRLHL7_ITS ---
For Patients: As a result of the 21st Century Cures Act, medical imaging exams and procedure reports are released immediately into your electronic medical record. You may view this report before your referring provider. If you have questions, please contact your health care provider. INDICATION: Lumbar radiculopathy. TECHNIQUE: Sagittal and axial T1, sagittal and axial T2 and sagittal STIR images are obtained. FINDINGS: Multilevel spondylosis. Chronic anterior wedge compression fracture deformity of L1 with approximately 40 percent loss of height anteriorly. No evidence of acute compression fracture. The distal cord/conus medullaris appears normal in morphology and signal intensity and terminates normally at the upper L1 level. Bilateral renal cysts are noted. No posterior disc herniation or stenosis at the T11-12 or T12-L1 levels. At L1-2 Schmorl`s node endplate changes at a shallow left posterolateral disc extrusion causes mild thecal sac deformity and mild displacement of the traversing left L2 nerve root. There is also mild to moderate left neural foraminal narrowing. At L2-3 Schmorl`s node endplate changes degenerative disc desiccation. Mild annular bulging without stenosis of the spinal canal or neural foramen. At L3-4 degenerative disc desiccation there is circumferential disc bulge with left posterolateral disc protrusion. Focally thickened left ligamentum flavum and facet hypertrophy. There is moderate to severe central spinal canal stenosis there is lateral recess stenosis greater left than right with impingement of the traversing left L4 nerve root extension of disc herniation into the left nerve root canal also compresses the exiting left L3 nerve root. At L4-5 degenerative narrowing of the disc space mild marginal endplate spurring. Bilateral facet hypertrophy. No stenosis of the spinal canal moderate to severe right neural foraminal stenosis due to disc osteophyte complex with right L4 nerve impingement. At L5-S1 degenerative disc desiccation and disc space narrowing left posterolateral disc osteophyte complex and facet enlargement results in left neural foraminal narrowing with left L5 nerve impingement mild right neural foraminal narrowing as well. Mild degenerative change of the bilateral sacroiliac joints. Impression : 1. Multilevel spondylosis through the lumbar and lower thoracic spine as described. 2. At L3-4 there is moderate to severe central spinal canal stenosis. Impingement of left traversing L4 and exiting left L3 nerve roots due to posterolateral and intra foraminal disc extrusion and facet enlargement. 3. At L4-5, right neural foraminal stenosis with right L4 nerve impingement. 4. At L5-S1, left greater than right foraminal stenosis with left L5 nerve impingement. 5. Chronic compression fracture of L1. Dictated by Rob German MD @ 01/23/2023 9:58:41 AM (Electronically Signed)
== END 2023-01-22 14:19 | disposition home or self-care (01) ==
PROVIDERS: PCP Physician Assistant Medical; Visit Provider Family Medicine
DX: M54.16 Radiculopathy, lumbar region (principal); M47.896 Other spondylosis, lumbar region; M48.061 Spinal stenosis, lumbar region without neurogenic claudication; M48.07 Spinal stenosis, lumbosacral region; S32.010A Wedge compression fracture of first lumbar vertebra, initial encounter for closed fracture
CPT/HCPCS: 72148

== ENCOUNTER 2023-02-08 07:50 | Outpatient (CLI) | payer MEDICARE, OTHER, SELFPAY ==
--- NOTE | 2023-02-08 08:15 | CRLHL7_ITS ---
For Patients: As a result of the Cures Act, medical imaging exams and procedure reports are released immediately into your electronic medical record. You may view this report before your referring provider. If you have questions, please contact your health care provider. Examination: US abdominal aorta Indication: Abdominal aortic aneurysm screening. Technique: Mclaughlin scale and color Doppler images of the aorta and common iliac arteries are obtained. Comparison: None Findings: Proximal aorta: 1.1 cm Mid aorta: 1.5 x 1.7 cm Distal aorta: 0.9 x 1.6 cm Right common iliac artery: 0.5 x 1.1 cm Left common iliac artery: 0.4 x 0.9 cm Impression: No abdominal aortic aneurysm. Dictated by Ranjeet Diana MD @ 02/08/2023 9:31:02 AM (Electronically Signed)
== END 2023-02-08 07:51 | disposition home or self-care (01) ==
LOC: US 07:51
PROVIDERS: PCP Physician Assistant Medical; Visit Provider Family Medicine
DX: I70.0 Atherosclerosis of aorta (principal); Z13.6 Encounter for screening for cardiovascular disorders
CPT/HCPCS: 76706

== ENCOUNTER 2023-02-20 14:49 | Outpatient (CLI) | payer MEDICARE, OTHER, SELFPAY | END 2023-02-20 14:50 | disposition home or self-care (01) | LOC: INJ CL 14:50 | PROVIDERS: PCP Physician Assistant Medical; Visit Provider Family Medicine | DX: M51.26 Other intervertebral disc displacement, lumbar region (principal); M51.36 Other intervertebral disc degeneration, lumbar region; M54.16 Radiculopathy, lumbar region | CPT/HCPCS: 64483; 64484; J1100; Q9966 ==

== ENCOUNTER 2023-05-29 14:32 | Outpatient (CLI) | payer MEDICARE, OTHER, SELFPAY | END 2023-05-29 14:33 | disposition home or self-care (01) | LOC: INJ CL 14:33 | PROVIDERS: PCP Physician Assistant Medical; Visit Provider Family Medicine | DX: M51.36 Other intervertebral disc degeneration, lumbar region (principal); M54.16 Radiculopathy, lumbar region | CPT/HCPCS: 62323; J0702; Q9966 ==

== ENCOUNTER 2023-06-18 09:36 | Outpatient (CLI) | payer MEDICARE, OTHER, SELFPAY | END 2023-06-18 09:37 | disposition home or self-care (01) | LOC: RAD 09:37 | PROVIDERS: PCP Physician Assistant Medical; Visit Provider Physician Assistant Medical | DX: R06.02 Shortness of breath (principal) | CPT/HCPCS: 93306 ==

== ENCOUNTER 2023-06-19 11:16 | Outpatient (CLI) | payer MEDICARE, OTHER, SELFPAY | END 2023-06-19 11:17 | disposition home or self-care (01) | LOC: NFLDREF 06-20 05:40 | PROVIDERS: PCP Physician Assistant Medical; Referring Provider Physician Assistant Medical; Visit Provider Physician Assistant Medical | DX: R06.02 Shortness of breath (principal); E03.9 Hypothyroidism, unspecified; E11.9 Type 2 diabetes mellitus without complications; E78.00 Pure hypercholesterolemia, unspecified; I10 Essential (primary) hypertension; J44.9 Chronic obstructive pulmonary disease, unspecified; F51.01 Primary insomnia | CPT/HCPCS: 80053; 80061; 82043; 82570; 84443 ==

== ENCOUNTER 2023-07-19 09:51 | Outpatient (CLI) | payer MEDICARE, OTHER, SELFPAY ==
--- NOTE | 2023-07-19 10:15 | FL_ITS ---
Patient: ELÍAS REESE Facility:?[facility] Patient ID:?[id number] Site Patient ID:?[id number] Site :?[id number] Study:?XRay-Chest CHEST FLUORO DR. GARCIAS TO READ-07/19/2023 10:35:58 AM Ordering Physician:?DR. CUNNINGHAM Final Report: Indication: SOB, ELEVATED Diaphragm (ON LEFT SIDE) Technique: Fluoroscopic sniff test. Fluoroscopic time 20 seconds. IMPRESSION: Left hemidiaphragm elevated. No motion with inspiration. Normal movement of the right hemidiaphragm. Findings consistent with left hemidiaphragm paralysis. Dictated by Ranjeet Garcias MD @ 07/19/2023 10:55:57 AM Signed by:?Ranjeet Garcias MD @07/19/2023 10:55:57 AM (Electronic Signature)
--- NOTE | 2023-07-19 11:00 | CT_ITS ---
Patient: ELÍAS REESE Facility:?[facility] Patient ID:?[id number] Site Patient ID:?[id number]. Site :?[id number] Study:?CT-Chest W/O-07/19/2023 10:40:25 AM Ordering Physician:DAVI Final Report: Indication: Shortness of breath, elevated left diaphragm Technique: Noncontrast CT chest including high-resolution inspiration supine images Please note that all CT scans at this facility use dose modulation, iterative reconstruction, and/or weight-based dosing when appropriate to reduce radiation dose to as low as reasonably achievable. Comparison: 07/05/2010 CT chest Findings: Fatty liver. No calcified gallstones. Atherosclerotic changes. Chronic prominence of main, right and left pulmonary arteries. No enlarged lymph nodes. No mediastinal mass. No visualized thyroid lesion. Elevation left hemidiaphragm. Left lower lobe atelectasis. Atelectasis also within the left upper lobe posteriorly. Mild atelectasis right lower lobe. No pulmonary edema or pleural effusion. Impression: Elevation left hemidiaphragm, new from 19/03. Adjacent atelectasis. No mediastinal mass or adenopathy. Chronic enlargement of the main, right and left PA. Please note that all CT scans at this facility use dose modulation, iterative reconstruction, and/or weight-based dosing when appropriate to reduce radiation dose to as low as reasonably achievable. Dictated by Ranjeet Diana MD @ 07/19/2023 12:27:02 PM Signed by:?Ranjeet Diana MD @07/19/2023 12:27:02 PM (Electronic Signature)
== END 2023-07-19 09:52 | disposition home or self-care (01) ==
LOC: RAD 09:52
PROVIDERS: PCP Physician Assistant Medical; Visit Provider Internal Medicine
DX: J98.6 Disorders of diaphragm (principal); R06.02 Shortness of breath
CPT/HCPCS: 71250; 76000

== ENCOUNTER 2023-10-16 10:40 | Outpatient (CLI) | payer MEDICARE, OTHER, SELFPAY | END 2023-10-16 10:41 | disposition home or self-care (01) | PROVIDERS: PCP Physician Assistant Medical; Visit Provider Family Medicine | DX: M54.16 Radiculopathy, lumbar region (principal); M51.36 Other intervertebral disc degeneration, lumbar region | CPT/HCPCS: 62323; J0702; Q9966 ==

== ENCOUNTER 2024-05-28 09:22 | Outpatient (CLI) | payer MEDICARE, OTHER, SELFPAY | END 2024-05-28 09:23 | disposition home or self-care (01) | LOC: NFLDREF 06-02 02:34 | PROVIDERS: PCP Physician Assistant Medical; Referring Provider Physician Assistant Medical; Visit Provider Physician Assistant Medical | DX: E11.9 Type 2 diabetes mellitus without complications (principal); E03.9 Hypothyroidism, unspecified; I10 Essential (primary) hypertension; E78.00 Pure hypercholesterolemia, unspecified | CPT/HCPCS: 80053; 80061; 82043; 82570; 84439; 84443 ==

== ENCOUNTER 2024-08-26 09:49 | Outpatient (CLI) | payer MEDICARE, OTHER, SELFPAY | END 2024-08-26 09:50 | disposition home or self-care (01) | LOC: NFLDREF 08-27 00:47 | PROVIDERS: PCP Physician Assistant Medical; Referring Provider Physician Assistant Medical; Visit Provider Physician Assistant Medical | DX: E03.9 Hypothyroidism, unspecified (principal) | CPT/HCPCS: 84443 ==

== ENCOUNTER 2024-09-19 07:29 | Outpatient (CLI) | payer MEDICARE, OTHER, SELFPAY | END 2024-09-19 07:30 | disposition home or self-care (01) | LOC: INJ CL 07:29 | PROVIDERS: PCP Physician Assistant Medical; Visit Provider Family Medicine | DX: M54.16 Radiculopathy, lumbar region (principal); M51.369 Other intervertebral disc degeneration, lumbar region without mention of lumbar back pain or lower extremity pain | CPT/HCPCS: 62323; J0702; Q9966 ==

== ENCOUNTER 2024-11-10 14:43 | Outpatient (CLI) | payer MEDICARE, OTHER, SELFPAY | END 2024-11-10 14:44 | disposition home or self-care (01) | LOC: NFLDREF 11-12 03:56 | PROVIDERS: PCP Physician Assistant Medical; Referring Provider Physician Assistant Medical; Visit Provider Physician Assistant Medical | DX: E03.9 Hypothyroidism, unspecified (principal) | CPT/HCPCS: 84439; 84443 ==

== ENCOUNTER 2025-02-06 10:54 | Outpatient (CLI) | payer MEDICARE, OTHER, SELFPAY | END 2025-02-06 10:55 | disposition home or self-care (01) | LOC: NFLDREF 02-09 18:19 | PROVIDERS: PCP Physician Assistant Medical; Referring Provider Physician Assistant Medical; Visit Provider Physician Assistant Medical | DX: L20.9 Atopic dermatitis, unspecified (principal); D18.01 Hemangioma of skin and subcutaneous tissue; E03.9 Hypothyroidism, unspecified; Z79.899 Other long term (current) drug therapy | CPT/HCPCS: 80053; 80061; 82043; 82570; 84439; 84443 ==